=== PATIENT | female | born 1995 | race Caucasian/White ===

== ENCOUNTER → 2016-10-22 16:22 | Emergency (ER) | payer MEDICAID ==
[2013-12-04 23:55] VITALS: BMI 35.7
[~2016-10-22 16:22] MED LIST: IBUPROFEN600 MG PO; PERCOCET 5-3251 TAB PO; PRENATAL COMPLE1 TAB PO
== END | disposition left against medical advice (07) ==
LOC: D.ER 16:22
DX: Z02.9 Encounter for administrative examinations, unspecified (principal)

== ENCOUNTER 2016-12-17 08:06 | Emergency (ER) | payer MEDICAID ==
[2013-12-04 23:55] VITALS: BMI 35.7
== END 2016-12-17 10:11 | disposition home or self-care (01) ==
LOC: D.ER 08:06
DX: S30.0XXA Contusion of lower back and pelvis, initial encounter (principal); Y04.2XXA Assault by strike against or bumped into by another person, initial encounter; Y93.89 Activity, other specified; Y92.89 Other specified places as the place of occurrence of the external cause; H72.92 Unspecified perforation of tympanic membrane, left ear

== ENCOUNTER 2018-03-07 19:47 | Emergency (ER) | payer MEDICAID ==
[~2018-03-07] VITALS: Ht 157.5 cm; Wt 86.4 kg
[2018-03-07 20:03] VITALS: Ht 157.5 cm; Wt 86.4 kg
[2018-03-07 20:41] LABS: BASOPHILS 0.1 % (0-2); EOSINOPHILS 1.9 % (0-7); HEMATOCRIT 37.1 % (36.0-48.0); HEMOGLOBIN 12.8 g/dL (12-16); IMMATURE GRANULOCYTES 0.3 % (0-5); LYMPHOCYTES 31.7 % (15-50); MCH 30.1 pg (26.0-34.0); MCHC 34.5 g/dL (31.0-37.0); MCV 87.3 fL (80.0-100.0); MEAN PLATELET VOLUME 9.2 fL (7.4-10.4); MONOCYTES 7.6 % (2-11); NEUTROPHILS 58.4 % (40-80); PLATELET COUNT 325 10x3/uL (130-400); RBC 4.25 10x6/uL (4.00-5.40); RDW 12.9 % (11.5-14.5); WBC 7.7 10x3/uL (4.8-10.8)
[2018-03-07 20:57] LABS: ALBUMIN 3.4 g/dL (3.4-5.0); ALKALINE PHOSPHATASE 69 U/L (46-116); ALT (SGPT) 23 U/L (10-68); BILIRUBIN - TOTAL 0.27 mg/dL (0.2-1.3); CALC OSMOLALITY 275 mosm/kg (275-300); CALCIUM 8.6 mg/dL (8.5-10.1); CARBON DIOXIDE 25.7 mmol/L (21.0-32.0); CHLORIDE - SERUM 105 mmol/L (98-107); CREATININE - SERUM 0.7 mg/dL (0.6-1.3); GLUCOSE 89 mg/dL (74-106); POTASSIUM - SERUM 3.5 mmol/L (3.5-5.1); PROTEIN - SERUM 7.4 g/dL (6.4-8.2); SODIUM 139 mmol/L (136-145); UREA NITROGEN 9 mg/dL (7-18); eGFR NON AFRICAN AMERICAN > 90 mL/min (90-120)
[2018-03-07 21:04] LABS: HCG - QUANTITATIVE (MATERNAL) 23 mIU/mL
[2018-03-07 21:07] LABS: APPEARANCE HAZY (CLEAR); COLOR YELLOW (YELLOW); NITRITE NEGATIVE (NEGATIVE); PROTEIN NEGATIVE (NEGATIVE); SPECIFIC GRAVITY 1.015 (1.005-1.020)
[2018-03-07 21:11] LABS: BILIRUBIN NEGATIVE (NEGATIVE); GLUCOSE NEGATIVE (NEGATIVE); KETONE NEGATIVE (NEGATIVE); UROBILINOGEN NORMAL (NORMAL)
[2018-03-07 21:13] LABS: EPITHELIAL CELLS 0-5 /hpf (0-5)
[2018-03-07 21:14] LABS: BACTERIA MANY /hpf (NONE SEEN)
[2018-03-07 21:14] LABS: HCG SERUM POSITIVE (NEGATIVE)
[2018-03-08 00:41] VITALS: BP 116/67
== END 2018-03-08 00:41 | disposition home or self-care (01) ==
LOC: D.ER 19:47
PROVIDERS: Family Medicine
DX: O03.4 Incomplete spontaneous abortion without complication (principal); R10.30 Lower abdominal pain, unspecified; M54.5 Low back pain